=== PATIENT | male | born 1945 | race Caucasian/White ===

== ENCOUNTER 2017-02-13 21:14 | Emergency (ER) | payer MEDICARE, BC ==
[2017-02-13] MEDS ORDERED: Sodium Chloride 0.9% 10 ML Syringe FLUSH PRN (21:46)
[2017-02-13] MEDS ORDERED: HYDROmorphone 1 MG/ML Syringe IVPUSH ONE (21:47)
[2017-02-13] MEDS ORDERED: Lidocaine 1% 20 ML MDV INJECT ONE (22:26)
--- NOTE | 2017-02-13 23:21 | EDM.PDOC ---
ED HPI GENERAL MEDICAL PROBLEM - General Chief Complaint: Upper Extremity Injury/Pain Stated Complaint: L ARM INJURY Time Seen by Provider: 02/13/17 21:42 Source of Information: Reports: Patient History Limitations: Reports: No Limitations - History of Present Illness INITIAL COMMENTS - FREE TEXT/NARRATIVE: History of present illness: [71-year-old male presents with the anterior dislocation of his left shoulder. He was getting onto the dock and the boat was slipping away from the dock and he reached to grab something and dislocated his shoulder. He's never dislocated the shoulder in the past. He has some numbness and tingling of his fourth and fifth fingers] Review of systems: As per history of present illness and below otherwise all systems reviewed and negative. Past medical history: As per history of present illness and as reviewed below otherwise noncontributory. Surgical history: As per history of present illness and as reviewed below otherwise noncontributory. Social history: No reported history of drug or alcohol abuse. Family history: As per history of present illness and as reviewed below otherwise noncontributory. Physical exam: HEENT: Atraumatic, normocephalic, Lungs: Clear to auscultation, breath sounds equal bilaterally, chest nontender. Heart: S1S2, regular, negative for clicks, rubs, or JVD. Abdomen: Soft, nondistended, nontender. Negative for masses or hepatosplenomegaly. Negative for costovertebral tenderness. Extremities: Examination of his left shoulder reveals an obvious anterior dislocation with a pocket formation with the glenoid fossae is Neuro: Awake, alert, oriented. Diagnostics: [X-rays of the shoulder revealed an anterior inferior dislocation] Therapeutics: [10 mL of lidocaine were injected into the lunate fossa 1% without epinephrine for anesthesia he was also given 1 mg of Dilaudid IV. I then attempted to reduce the dislocation using an exterior rotation technique of the shoulder. It was partially successful with apcitide patient stand up and then leveraged the humeral head back into the glenoid fossa by placing my left hand in his axilla and bridging it in 2 aunts sock. Postreduction films the confirmed the reduction.] Impression: [Left anterior dislocation] Plan: [We've put him in a shoulder immobilizer and provided him with [place] 5/325 one to 2 every 3-4 hours #18 from [facility]. ] Definitive disposition and diagnosis as appropriate pending reevaluation and review of above. Left Shoulder Pain Score (Numeric/FACES): 8 - Related Data Allergies Allergy/AdvReac Type Severity Reaction Status Date / Time Penicillins Allergy Itching Verified 02/13/17 21:31 Home Meds: Home Meds Simvastatin [Zocor] 10 mg PO DAILY 02/13/17 [History] Past Medical History HEENT History: Reports: Other (See Below) Other HEENT History: tinnitus Cardiovascular History: Reports: High Cholesterol, Hypertension Musculoskeletal History: Reports: Fracture Other Musculoskeletal History: L arm - Infectious Disease History Infectious Disease History: Reports: Chicken Pox - Past Surgical History Musculoskeletal Surgical History: Reports: Hip Replacement Social & Family History - Tobacco Use Smoking Status *Q: Never Smoker - Caffeine Use Caffeine Use: Reports: Coffee - Alcohol Use Days Per Week of Alcohol Use: 1 Number of Drinks Per Day: 2 Total Drinks Per Week: 2 Date of Last Drink: 02/13/17 - Recreational Drug Use Recreational Drug Use: No Review of Systems - Review of Systems Review Of Systems: ROS reveals no pertinent complaints other than HPI. ED EXAM, GENERAL - Physical Exam Exam: See Below Course - Vital Signs Last Recorded V/S: Last Vital Signs Temp 36.4 C 02/13/17 21:27 Pulse 71 02/13/17 21:27 Resp 16 02/13/17 21:27 BP 141/94 H 02/13/17 21:27 Pulse Ox 99 02/13/17 21:27 - Orders/Labs/Meds Orders: Active Orders 24 hr Category Date Time Status Shoulder Comp Lt [CR] Stat Exams 02/13/17 21:48 Taken Shoulder Comp Lt [CR] Stat Exams 02/13/17 22:44 Taken Sodium Chloride 0.9% [Saline Flush] Med 02/13/17 21:46 Active 10 ml FLUSH ASDIRECTED PRN Saline Lock Insert [OM.PC] Stat Oth 02/13/17 21:46 Ordered Medication Orders Sodium Chloride (Saline Flush) 10 ml FLUSH ASDIRECTED PRN PRN Reason: Keep Vein Open Last Admin: 02/13/17 22:01 Dose: 10 ml Meds: Medications Generic Name Dose Route Start Last Admin Trade Name Freq PRN Reason Stop Dose Admin Sodium Chloride 10 ml 02/13/17 21:46 02/13/17 22:01 Saline Flush FLUSH 10 ml ASDIRECTED PRN Administration Keep Vein Open Discontinued Medications Generic Name Dose Route Start Last Admin Trade Name Blanca PRN Reason Stop Dose Admin Hydromorphone HCl 1 mg 02/13/17 21:47 02/13/17 22:00 Dilaudid IVPUSH 02/13/17 21:48 1 mg ONETIME ONE Administration Lidocaine HCl 20 ml 02/13/17 22:26 02/13/17 22:33 Xylocaine 1% INJECT 02/13/17 22:27 20 ml ONETIME ONE Administration Departure - Departure Time of Disposition: 23:21 Disposition: Home, Self-Care 01 Condition: Good Clinical Impression: Anterior dislocation of left shoulder Qualifiers: Encounter type: initial encounter Qualified Code(s): S43.015A - Anterior dislocation of left humerus, initial encounter - Discharge Information Referrals: PCP,None [Primary Care Provider] - Additional Instructions: I would recommend that you follow-up with your primary care doctor who may refer you to an orthopedic doctor for management of your rehabilitation of your shoulder dislocation. Hopefully this will not require a surgery but that would be a possibility. You will fish again in spite of this injury! - My Orders Last 24 Hours: My Active Orders 02/13/17 21:46 Sodium Chloride 0.9% [Saline Flush] 10 ml FLUSH ASDIRECTED PRN Saline Lock Insert [OM.PC] Stat 02/13/17 21:48 Shoulder Comp Lt [CR] Stat 02/13/17 22:44 Shoulder Comp Lt [CR] Stat - Assessment/Plan Last 24 Hours: My Active Orders 02/13/17 21:46 Sodium Chloride 0.9% [Saline Flush] 10 ml FLUSH ASDIRECTED PRN Saline Lock Insert [OM.PC] Stat 02/13/17 21:48 Shoulder Comp Lt [CR] Stat 02/13/17 22:44 Shoulder Comp Lt [CR] Stat
[2017-02-13 23:24] VITALS: BP 158/85
--- NOTE | 2017-02-14 12:01 | CR ---
Anterior shoulder dislocation. Small sex deformity.
--- NOTE | 2017-02-14 12:02 | CR ---
Relocated left shoulder. Hill-Sachs deformity is small and may be nonacute.
== END 2017-02-13 23:39 | disposition home or self-care (01) ==
LOC: JP.ED 21:14
DX: S43.015A Anterior dislocation of left humerus, initial encounter (principal); I10 Essential (primary) hypertension; E78.00 Pure hypercholesterolemia, unspecified; Z96.649 Presence of unspecified artificial hip joint; Z88.0 Allergy status to penicillin; W18.40XA Slipping, tripping and stumbling without falling, unspecified, initial encounter; Y93.89 Activity, other specified; Y92.89 Other specified places as the place of occurrence of the external cause
CPT/HCPCS: 23650; 73030; 96374; 99284; J1170; J7050